=== PATIENT | female | born 1990 | race Two or more races ===

== ENCOUNTER → 2025-05-08 | Outpatient (CLI) | payer OTHER | LOC: M PLALAB 08:02 | PROVIDERS: ATTEND Nurse Practitioner Family | DX: Z34.81 Encounter for supervision of other normal pregnancy, first trimester (principal) ==

== ENCOUNTER 2025-06-11 16:09 | Emergency (ER) | payer OTHER ==
[~2025-06-11] VITALS: Ht 167.6 cm; Wt 84.6 kg
[2025-06-11 16:12] VITALS: TEMP 98.2
[2025-06-11] MEDS ORDERED: MULTTAB20 PO (16:15)
[2025-06-11] MEDS ORDERED: UNIS25TA3 PO (16:15)
[2025-06-11 17:15] LABS: KETONE, URINE AUTO RFX NEGATIVE (NEGATIVE); NITRITE, URINE AUTO RFX NEGATIVE (NEGATIVE); RBC, URINE AUTO RFX 3 /HPF (0-3); SQUAM EPITHELIAL CELL UR AURFX 5 /HPF (0-6)
[2025-06-11 17:18] LABS: LEUKOCYTE ESTERASE UR AUTO RFX 3+ (NEGATIVE); WBC, URINE AUTO RFX 23 /HPF (0-3)
[2025-06-11 17:19] LABS: BASO # 0.0 10^3/uL (0.0-0.2); BASO % 0.4 % (0.0-1.0); EOS # 0.1 10^3/uL (0.0-0.5); EOS % 0.7 % (0.0-3.0); LYMPH # 2.4 10^3/uL (1.5-5.0); LYMPH % 29.3 % (24.0-44.0); MONO # 0.5 10^3/uL (0.0-0.8); MONO % 5.9 % (2.0-8.0); NEUTROPHILS # 5.3 10^3/uL (1.5-8.5); NEUTROPHILS % 63.5 % (36.0-66.0); PLATELET COUNT, AUTOMATED 218 10^3/uL (150-450)
[2025-06-11 17:42] LABS: CALCIUM LEVEL 8.8 MG/DL (8.5-10.1); CARBON DIOXIDE LEVEL 22 MMOL/L (20-31); CHLORIDE LEVEL 108 MMOL/L (98-107); CREATININE FOR GFR 0.53 MG/DL (0.55-1.30); GLOMERULAR FILTRATION RATE > 90.0 (>60); POTASSIUM SERUM 3.6 MMOL/L (3.5-5.1); SODIUM LEVEL 140 MMOL/L (136-145)
[2025-06-11 17:45] VITALS: BP 111/63; O2SAT 99
[2025-06-11] MEDS ORDERED: NITR100C3 PO (17:46)
[2025-06-11] MEDS: NITROFURANTOIN 100 MG CAP PO ONE (18:00)
== END 2025-06-11 18:02 | disposition home or self-care (01) ==
LOC: M ED 16:09
DX: O23.42 Unspecified infection of urinary tract in pregnancy, second trimester (principal); Z3A.17 17 weeks gestation of pregnancy; Z79.899 Other long term (current) drug therapy; Z79.810 Long term (current) use of selective estrogen receptor modulators (SERMs)

== ENCOUNTER → 2025-06-17 | Outpatient (CLI) | payer OTHER ==
[~2025-06-17] MED LIST: MULTTAB20 PO; NITR100C3 PO; UNIS25TA3 PO
== END ==
LOC: M WHC 13:02
PROVIDERS: ATTEND Nurse Practitioner Family
DX: Z34.82 Encounter for supervision of other normal pregnancy, second trimester (principal)

== ENCOUNTER 2025-07-27 09:18 | Outpatient (CLI) | payer OTHER ==
[~2025-07-27] VITALS: Ht 167.6 cm; Wt 87.1 kg
[2025-07-27 09:39] VITALS: BP 108/55
[2025-07-27 10:43] VITALS: BP 117/62
[2025-07-27 12:17] VITALS: BP 107/55
== END 2025-07-27 13:55 | disposition home or self-care (01) ==
LOC: M LDO 09:18
PROVIDERS: ATTEND Specialist
DX: O44.22 Partial placenta previa NOS or without hemorrhage, second trimester (principal); Z3A.24 24 weeks gestation of pregnancy
CPT/HCPCS: 59025; 76815; G0463

== ENCOUNTER 2025-08-05 20:49 | Outpatient (CLI) | payer OTHER ==
[~2025-08-05] VITALS: Ht 167.6 cm; Wt 89.3 kg
[2025-08-05 21:05] VITALS: BP 109/64
[2025-08-05] MEDS ORDERED: ACET-907 PO (21:16)
[2025-08-05] MEDS ORDERED: TUMS500C PO (21:16)
[2025-08-05] MEDS ORDERED: HOME MED LIST COMPLETE! XX SCH (21:20)
[2025-08-05 21:26] LABS: KETONE, URINE AUTO RFX NEGATIVE (NEGATIVE); LEUKOCYTE ESTERASE UR AUTO RFX NEGATIVE (NEGATIVE); MUCUS, URINE RFX SMALL (NEGATIVE); NITRITE, URINE AUTO RFX NEGATIVE (NEGATIVE); RBC, URINE AUTO RFX 14 /HPF (0-3); SQUAM EPITHELIAL CELL UR AURFX 0 /HPF (0-6); WBC, URINE AUTO RFX 1 /HPF (0-3)
[2025-08-05] MEDS ORDERED: SILVER NITRATE APPLICATOR (1 = QTY 10) TOP ONE (22:10)
[2025-08-05] MEDS: SILVER NITRATE APPLICATOR (1 = QTY 10) TOP ONE (22:27)
[2025-08-05 22:34] VITALS: BP 107/66
[2025-08-07 15:58] LABS: BVAB 2 POSITIVE (NEGATIVE)
[2025-08-07 17:11] LABS: CANDIDA GLABRATA NAA NOT DETECTED (NOT DETECTED); TRICH VAG BY NAA NOT DETECTED (NOT DETECTED)
[2025-08-07 18:26] LABS: CHLAMYDIA TRACHOMATIS NAA NOT DETECTED (NOT DETECTED)
== END 2025-08-05 22:44 | disposition home or self-care (01) ==
LOC: M LDO 20:49
PROVIDERS: ATTEND Advanced Practice Midwife
DX: O34.42 Maternal care for other abnormalities of cervix, second trimester (principal); Z3A.25 25 weeks gestation of pregnancy
CPT/HCPCS: 59025; 81001; 81513; 87481; 87591; 87661; G0463

== ENCOUNTER → 2025-09-04 | Outpatient (CLI) | payer OTHER ==
[~2025-09-04] MED LIST changes: +ACET-907 PO; +TUMS500C PO
[2025-09-04 13:32] LABS: PLATELET COUNT, AUTOMATED 233 10^3/uL (150-450)
[2025-09-04 13:56] LABS: GLUCOSE CHALLENGE TEST 1 HOUR 73 MG/DL (LESS THAN 140)
[2025-09-04 14:25] LABS: HIV 1&2 SCREEN NEGATIVE (NEGATIVE)
[2025-09-04 14:33] LABS: HEPATITIS C VIRUS ABY INDEX < 0.02 INDEX (<0.8)
[2025-09-04 15:46] LABS: Trichomonas vaginalis (AMP) NOT DETECTED (NEGATIVE)
[2025-09-04 16:09] LABS: GC DNA AMPLIFICATION NEGATIVE (NEGATIVE)
== END ==
LOC: M PLALAB 10:05
PROVIDERS: ATTEND Nurse Practitioner Family
DX: Z34.80 Encounter for supervision of other normal pregnancy, unspecified trimester (principal)

== ENCOUNTER → 2025-10-22 | Outpatient (REF) | payer OTHER | LOC: M SFHCWAGY 13:21 | PROVIDERS: ATTEND Advanced Practice Midwife | DX: Z34.83 Encounter for supervision of other normal pregnancy, third trimester (principal) ==